=== PATIENT | male | born 1985 | race Caucasian/White ===

== ENCOUNTER 2016-12-15 10:30 | Emergency (ER) | payer BC, OTHER, SELFPAY ==
--- NOTE | 2016-12-15 11:37 | ERRECORD ---
[facility] EMERGENCY RECORD HPI COUGH (10:53 SHAN) CHIEF COMPLAINT: Patient presents for evaluation of cough. HISTORIAN: History provided by patient, History provided by patient's family. LOCATION: getting worse over 2 to 3 days, myalgias, weakness, cough, congestion. SEVERITY: Maximum severity of symptoms moderate, Currently symptoms are moderate. ROS (10:54 SHAN) CONSTITUTIONAL: Negative constitutional review of systems. EYES: Negative eye review of systems. ENT: Negative ears, nose, throat review of systems. CARDIOVASCULAR: Negative cardiovascular review of systems. RESPIRATORY: Historian reports cough. GI: Negative gastrointestinal review of systems. MUSCULOSKELETAL: Negative musculoskeletal review of systems. SKIN: Negative skin review of systems. NEUROLOGIC: Negative neurologic review of systems. NOTES: All systems reviewed, negative except as described above. PAST MEDICAL HISTORY (10:42 BDON) MEDICAL HISTORY: No past medical history, Flu vaccine not up to date, Tetanus immunization up to date. MALE SURGICAL HISTORY: Patient has no surgical history. PSYCHIATRIC HISTORY: Psychiatric history includes, anxiety, depression. SOCIAL HISTORY: Patient denies alcohol use, Patient currently uses drugs, abuses marijuana, Patient has no smoking history, Lives at home, with family. KNOWN ALLERGIES No recorded allergies CURRENT MEDICATIONS No recorded medications VITAL SIGNS VITAL SIGNS: BP: 119/68, Pulse: 73, Resp: 18, Temp: 98.6 (Oral), Pain: 7, O2 sat: 97, Time: 12/15/2016 10:37. (10:37 BDON) Resp: 17, Pain: 7, Time: 12/15/2016 11:37. (11:37 BDON) PHYSICAL EXAM (10:54 SHAN) CONSTITUTIONAL: Patient afebrile, Pulse normal, Blood pressure normal, Respiratory rate normal, Normal pulse oximetry, Patient appears non toxic, Patient appears pain free, Patient alert and oriented to person, place and time, Nursing notes reviewed. HEAD: Head exam included findings of head atraumatic, normocephalic. EYES: Eye exam included findings of eyelids normal to inspection, Pupils equally round and reactive to light, Extraocular muscles &a-1R&a+25V*p+0X*f6672C*c202B*c15G*c2P*p-0X&a-25V&a+1R Name: Jeff Cárdenas : 1985 M31 MedRec: [id number] AcctNum: [id number] Prepared: TueDec 15, 2016 18:25 by Interface Page 1 of 2 pMD [facility] EMERGENCY RECORD intact. ENT: Pharynx exam normal, Uvula exam normal, Tonsil exam normal. NECK: Neck exam included findings of normal range of motion, Trachea midline. RESPIRATORY CHEST: minor ronchi. CARDIOVASCULAR: Cardiovascular exam included findings of heart rate regular rate and rhythm, Heart sounds normal. ABDOMEN MALE: Abdominal exam included findings of abdomen nontender, Bowel sounds normal. BACK: Back exam normal. UPPER EXTREMITY: Upper extremity exam included findings of inspection normal, Range of motion normal. NEURO: Neuro exam normal. SKIN: Skin exam normal. PROBLEM LIST No recorded problems DIAGNOSIS () FINAL: PRIMARY: influenza a. PRESCRIPTION () Tamiflu: CAPSULE : 75 mg : ORAL : Quantity: 1 Unit: cap(s) Route: ORAL Schedule: 2 times a day Dispense: 10 Unit: cap(s) May substitute. Refills: No Refills . NOTES: No Refills. Zofran ODT: TABLET,DISINTEGRATING : 4 mg : ORAL : Quantity: 1 Unit: tab(s) Route: ORAL Schedule: every 4 hours prn Dispense: 20 Unit: tab(s) May substitute. Refills: No Refills . NOTES: if needed for nausea No Refills. DISPOSITION PATIENT: Disposition Type: Discharge, Disposition: *Discharge Home. (: MAGDA) Patient left the department. (11:40 BDON) Harris: ALEXANDRA=SIERRA Castro, Vivian MAN=MD Jie, Shon &a-1R&a+25V*p+0X*b9412O*c202B*c15G*c2P*p-0X&a-25V&a+1R Name: Jeff Cárdenas : 1985 3 MedRec: [id number] AcctNum: [id number] Prepared: TueDec 15, 2016 18:25 by Interface Page 2 of 2 pMD MTDD
--- NOTE | 2016-12-15 11:39 | PICIS ---
[facility] EMERGENCY RECORD TRIAGE (TueDec 15, 2016 10:39 BDON) TRIAGE NOTES: Co workers diagnosis with the flu, for past 3 days, chills, nausea, with generalized bodyaches. (TueDec 15, 2016 10:39 BDON) PATIENT: NAME: Jeff Cárdenas, AGE: 31, GENDER: male, : Sat 1985, TIME OF GREET: TueDec 15, 2016 10:31, PREFERRED LANGUAGE: Ukrainian, ETHNICITY: Not or , ECODE BILLING MAP: [facility], SSN: [id number], Zip Code: [address], KG WEIGHT: 63.50, PHONE: , , , PERSON ID: [id number], PCP: Jian MERCEDES C. HENRY. (TueDec 15, 2016 10:39 BDON) COMPLAINT: FEVER,BODY ACHES,COUGH,CONGESTION. (TueDec 15, 2016 10:39 BDON) ADMISSION: URGENCY: 4 Non Urgent, ADMISSION SOURCE: Home, TRANSPORT: Walk-in, BED: TRIAGE. (TueDec 15, 2016 10:39 BDON) ASSESSMENT: Assessment: Generalized bodyaches with chills, congestion and cough, Symptoms began 3 days ago. (10:42 BDON) TREATMENTS IN PROGRESS: Treatments given Prehospital: none. (10:42 BDON) PROVIDERS: TRIAGE NURSE: Vivian Castro RN. (TueDec 15, 2016 10:39 BDON) VITAL SIGNS: BP 119/68, Pulse 73, Resp 18, Temp 98.6, (Oral), Pain 7, O2 Sat 97, Time 12/15/2016 10:37. (10:37 BDON) KNOWN ALLERGIES No recorded allergies CURRENT MEDICATIONS No recorded medications VITAL SIGNS VITAL SIGNS: BP: 119/68, Pulse: 73, Resp: 18, Temp: 98.6 (Oral), Pain: 7, O2 sat: 97, Time: 12/15/2016 10:37. (10:37 BDON) Resp: 17, Pain: 7, Time: 12/15/2016 11:37. (11:37 BDON) NURSING ASSESSMENT: ENT (10:48 BDON) CONSTITUTIONAL: Patient arrives ambulatory, Gait steady, History obtained from patient, Patient appears, generally ill, Patient cooperative, Patient alert, Oriented to person, place and time, Skin warm, Skin dry, Skin normal in color. PAIN: aching pain, generalized. ENT: Congestion. RESPIRATORY/CHEST: Respiratory assessment findings include respiratory effort easy, Respirations regular, Conversing normally, Neck and chest exam findings include trachea midline, Associated with cough. SAFETY: Cart/Stretcher in lowest position, Family at bedside, Hospital ID band on, Patient in view of the nursing station. NURSING PROCEDURE: DISCHARGE NOTE (11:32 BDON) &a-1R&a+25V*p+0X*h6034K*c202B*c15G*c2P*p-0X&a-25V&a+1R Name: Jeff Cárdenas : 1985 M31 MedRec: [id number] AcctNum: [id number] Prepared: TueDec 15, 2016 18:32 by Interface Page 1 of 5 pMD [facility] EMERGENCY RECORD DISCHARGE: Patient discharged to home, ambulating without assistance, driving self, Summary of Care printed/ provided, Patient requested and was provided an electronic copy of Discharge Instructions, Transition record given to patient, Discharge instructions given to patient, Simple or moderate discharge teaching performed, Prescriptions given and instructions on side effects given, Medication reconciliation form given, Above person(s) verbalized understanding of discharge instructions and follow-up care, Patient treated and evaluated by physician. NURSING PROCEDURE: NURSE NOTES (11:11 BDON) NURSES NOTES: Warm blanket given to patient. ORDER DETAILS Order Name: Influenza A&B Ag Screen, Status: Active, Time: 10:40 12/15/2016, User: BDON, - Ordered for: MD Jie, Shon, - Entered by: SIERRA Castro, Vivina - TueDec 15, 2016 10:40, - Quantity: 1. HPI COUGH (10:53 SHAN) CHIEF COMPLAINT: Patient presents for evaluation of cough. HISTORIAN: History provided by patient, History provided by patient's family. LOCATION: getting worse over 2 to 3 days, myalgias, weakness, cough, congestion. SEVERITY: Maximum severity of symptoms moderate, Currently symptoms are moderate. ROS (10:54 SHAN) CONSTITUTIONAL: Negative constitutional review of systems. EYES: Negative eye review of systems. ENT: Negative ears, nose, throat review of systems. CARDIOVASCULAR: Negative cardiovascular review of systems. RESPIRATORY: Historian reports cough. GI: Negative gastrointestinal review of systems. MUSCULOSKELETAL: Negative musculoskeletal review of systems. SKIN: Negative skin review of systems. NEUROLOGIC: Negative neurologic review of systems. NOTES: All systems reviewed, negative except as described above. PAST MEDICAL HISTORY (10:42 BDON) MEDICAL HISTORY: No past medical history, Flu vaccine not up to date, Tetanus immunization up to date. MALE SURGICAL HISTORY: Patient has no surgical history. PSYCHIATRIC HISTORY: Psychiatric history includes, anxiety, depression. SOCIAL HISTORY: Patient denies alcohol use, Patient currently uses drugs, abuses marijuana, Patient has no smoking history, Lives at home, with family. &a-1R&a+25V*p+0X*s5796B*c202B*c15G*c2P*p-0X&a-25V&a+1R Name: Jeff Cárdenas : 1985 M31 MedRec: [id number] AcctNum: [id number] Prepared: TueDec 15, 2016 18:32 by Interface Page 2 of 5 pMD [facility] EMERGENCY RECORD PHYSICAL EXAM (10:54 SHAN) CONSTITUTIONAL: Patient afebrile, Pulse normal, Blood pressure normal, Respiratory rate normal, Normal pulse oximetry, Patient appears non toxic, Patient appears pain free, Patient alert and oriented to person, place and time, Nursing notes reviewed. HEAD: Head exam included findings of head atraumatic, normocephalic. EYES: Eye exam included findings of eyelids normal to inspection, Pupils equally round and reactive to light, Extraocular muscles intact. ENT: Pharynx exam normal, Uvula exam normal, Tonsil exam normal. NECK: Neck exam included findings of normal range of motion, Trachea midline. RESPIRATORY CHEST: minor ronchi. CARDIOVASCULAR: Cardiovascular exam included findings of heart rate regular rate and rhythm, Heart sounds normal. ABDOMEN MALE: Abdominal exam included findings of abdomen nontender, Bowel sounds normal. BACK: Back exam normal. UPPER EXTREMITY: Upper extremity exam included findings of inspection normal, Range of motion normal. NEURO: Neuro exam normal. SKIN: Skin exam normal. EVENTS TRANSFER: Triage to Emergency Triage. (10:39 BDON) Emergency Triage to Emergency Room -04. (10:40 BDON) Removed from Emergency Emergency Room -04. (11:40 BDON) PROBLEM LIST No recorded problems DIAGNOSIS (:) FINAL: PRIMARY: influenza a. DISPOSITION PATIENT: Disposition Type: Discharge, Disposition: *Discharge Home. (11:23 SHAN) Patient left the department. (11:40 BDON) INSTRUCTION (11:24 SHAN) DISCHARGE: INFLUENZA (ADULT). FOLLOWUP: Jian MERCEDES, Juve LUNDBERG, [facility], [facility] [id number], [id number]. SPECIAL: 1. Tamiflu as directed for flu 2. nausea pill if needed 3. go home and rest, push fluids 4. return if condition worsens 5. followup with regular provider in about a week unless totally &a-1R&a+25V*p+0X*y8355S*c202B*c15G*c2P*p-0X&a-25V&a+1R Name: Jeff Cárdenas : 1985 M31 MedRec: [id number] AcctNum: [id number] Prepared: TueDec 15, 2016 18:32 by Interface Page 3 of 5 pMD [facility] EMERGENCY RECORD well. PRESCRIPTION (:) Tamiflu: CAPSULE : 75 mg : ORAL : Quantity: 1 Unit: cap(s) Route: ORAL Schedule: 2 times a day Dispense: 10 Unit: cap(s) May substitute. Refills: No Refills . NOTES: No Refills. Zofran ODT: TABLET,DISINTEGRATING : 4 mg : ORAL : Quantity: 1 Unit: tab(s) Route: ORAL Schedule: every 4 hours prn Dispense: 20 Unit: tab(s) May substitute. Refills: No Refills . NOTES: if needed for nausea No Refills. IMAGING *DISCHARGE INSTRUCTIONS RECEIPT: Image captured from scanner. (11:38 BDON) *SUPPLY CHARGE SHEET: Image captured from scanner. (11:39 BDON) ADMIN DIGITAL SIGNATURE: MD Ceron Stanley. (11:24 MAGDA) SIERRA Castro, Vivian. (11:40 ALEXANDRA) MD Ceron Stanley. (18:20 MAGDA) RESULTS (11:25 MAGDA) MICROBIOLOGY: Influenza A&B Ag Screen: [id number] Collection DT: TueDec 15, 2016 11:04, See comment below , @ ER ROOM#: TRIAGE[TxData]:ER.BE Source: Nasal swab Spec Desc: , *Influenza A Antigen: POSITIVE for the , * presence of , * INFLUENZA A Antigen , * - H , Influenza B Antigen: NEGATIVE for the , presence of , INFLUENZA B Antigen , The rapid Flu A&B test can distinguish between influenza A , Influenza A&B Ag Screen See comment below , and B viruses, but it does not differentiate influenza , Influenza A&B Ag Screen See comment below , subtypes. , Influenza A&B Ag Screen See comment below , Influenza A&B Ag Screen See comment below , Influenza A&B Ag Screen See comment below , Influenza A&B Ag Screen See comment below , characteristics of this device with human specimens infected , Influenza A&B Ag Screen See comment below , with the 2008 H1N1 influenza virus have not been , Influenza A&B Ag Screen See comment below , established. For example: &a-1R&a+25V*p+0X*g7420Q*c202B*c15G*c2P*p-0X&a-25V&a+1R Name: Jeff Cárdenas : 1985 M31 MedRec: [id number] AcctNum: [id number] Prepared: TueDec 15, 2016 18:32 by Interface Page 4 of 5 [facility] EMERGENCY RECORD this test cannot distinguish , Influenza A&B Ag Screen See comment below , influenza infections caused by novel H1N1 influenza A , Influenza A&B Ag Screen See comment below , viruses versus seasonal influenza A viruses. , Influenza A&B Ag Screen See comment below , , Influenza A&B Ag Screen See comment below , A negative result does not exclude influenza virus , Influenza A&B Ag Screen See comment below , infection; therefore, if more conclusive testing is desired, , Influenza A&B Ag Screen See comment below , follow up confirmatory testing is warranted., Influenza A&B Ag Screen See comment below . Harris: BDON=SIERRA Castro, Vivian MAN=MD Jie, Shon &a-1R&a+25V*p+0X*x4113I*c202B*c15G*c2P*p-0X&a-25V&a+1R Name: Jeff Cárdenas : 1985 M31 MedRec: [id number] AcctNum: [id number] Prepared: Cruz Dec 15, 2016 18:32 by Interface Page 5 of 5 pMD MTDD
== END 2016-12-15 11:32 | disposition home or self-care (01) ==
LOC: NAV ERS 10:30
DX: J11.1 Influenza due to unidentified influenza virus with other respiratory manifestations (principal); F41.9 Anxiety disorder, unspecified; F32.9 Major depressive disorder, single episode, unspecified
CPT/HCPCS: 99283